=== PATIENT | female | born 1955 | race Two or more races ===

== ENCOUNTER → 2018-04-20 | Outpatient (CLI) | payer MEDICARE ==
[~2018-04-20] MED LIST: ALBU.083IS IH; ALBU3IS INH; ALBU90OI61 INH; ALPR.25 PO; AMIT10 PO; AMIT50 PO; AZIT500 PO; CEPH500 PO; CIPRO500 MG PO; CYCL10 PO; EVAMIST; FLUSAL5005 IH; FLUT.05NI; FLUT220OIA IH; Flomax0.4 MG PO; GABA300 PO; HYDACE10B PO; MONT10T PO; NAPR220 PO; NAPR500 PO; NEBI5 PO; OMEP40CA12 PO; ONDA4ODT MM; PRED20 PO; Pyridium200 MG PO; RANI150 PO; URIBEL CAPSULE1 EACH PO; XOLAIR; Xolair150 MG SQ; [UNRECOGNIZED DRUG - OTHER]
[2018-04-20 22:36] LABS: Candida species (DNA Probe) Negative (NEGATIVE); G. vaginalis (DNA Probe) Negative (NEGATIVE); T. vaginalis (DNA Probe) Negative (NEGATIVE)
== END ==
LOC: LAB EV 16:00 → LAB SHORT 16:00
PROVIDERS: Internal Medicine
DX: N76.0 Acute vaginitis (principal)
CPT/HCPCS: 87480; 87510; 87660

== ENCOUNTER → 2018-05-13 | Outpatient (CLI) | payer MEDICARE | END | disposition home or self-care (01) | LOC: LAB SHORT 16:20 → LAB 16:20 | DX: N89.8 Other specified noninflammatory disorders of vagina (principal) | CPT/HCPCS: 87070; 87077; 87186; 87205 ==

== ENCOUNTER → 2018-05-14 | Outpatient (CLI) | payer MEDICARE | END | disposition home or self-care (01) | LOC: LAB SHORT 15:19 → LAB 15:19 | DX: R30.0 Dysuria (principal) | CPT/HCPCS: 87086 ==

== ENCOUNTER → 2018-05-21 | Outpatient (CLI) | payer MEDICARE | LOC: LAB 16:21 → LAB SHORT 16:21 | DX: R30.0 Dysuria (principal) | CPT/HCPCS: 87086 ==

== ENCOUNTER → 2018-06-22 | Outpatient (CLI) | payer BC, MEDICARE | END | disposition home or self-care (01) | LOC: LAB SHORT 15:37 → LAB 15:37 | DX: R30.0 Dysuria (principal) | CPT/HCPCS: 87086 ==

== ENCOUNTER → 2018-06-30 | Outpatient (CLI) | payer BC, MEDICARE | END | disposition home or self-care (01) | LOC: LAB SHORT 16:23 → LAB 16:23 | DX: N89.8 Other specified noninflammatory disorders of vagina (principal) | CPT/HCPCS: 87070; 87077; 87186; 87205 ==

== ENCOUNTER → 2018-07-27 | Outpatient (CLI) | payer BC, MEDICARE | END | disposition home or self-care (01) | LOC: LAB 16:36 → LAB SHORT 16:36 | DX: N89.8 Other specified noninflammatory disorders of vagina (principal) | CPT/HCPCS: 87070; 87205 ==

== ENCOUNTER → 2018-08-05 | Outpatient (CLI) | payer BC, MEDICARE | END | disposition home or self-care (01) | LOC: LAB SHORT 17:52 → LAB 17:52 | DX: N89.8 Other specified noninflammatory disorders of vagina (principal) | CPT/HCPCS: 87070; 87205 ==

== ENCOUNTER → 2018-11-05 | Outpatient (CLI) | payer BC, MEDICARE ==
[~2018-11-05] MED LIST changes: +ALBU3IS; +ALBU90OI6; +AMIT10; +Advair Hfa 230-12 GM; +Bisoprolol Fumar5 MG; +Bystolic2.5 MG; +Calcium Carbon500 M1; +Clobetasol Emol15 GM; +Estradiol1 MG; +Eye Drops15 ML; +FLONASE ALLERG9.9 ML; +LOSA25; +MONT10T; +Omeprazole20 M1 PO; +Xolair150 MG
== END | disposition home or self-care (01) ==
LOC: LAB EV 06:30
DX: R19.7 Diarrhea, unspecified (principal)
CPT/HCPCS: 87493

== ENCOUNTER → 2018-12-01 | Outpatient (CLI) | payer BC, MEDICARE | END | disposition home or self-care (01) | LOC: LAB 12:52 → LAB SHORT 12:52 | DX: R30.0 Dysuria (principal) | CPT/HCPCS: 87086 ==

== ENCOUNTER → 2018-12-02 | Outpatient (CLI) | payer BC, MEDICARE ==
[2018-12-03 08:16] LABS: G. vaginalis (DNA Probe) Positive (NEGATIVE); T. vaginalis (DNA Probe) Negative (NEGATIVE)
[2018-12-03 08:17] LABS: Candida species (DNA Probe) Negative (NEGATIVE)
== END | disposition home or self-care (01) ==
LOC: LAB 16:44 → LAB SHORT 16:44
PROVIDERS: Obstetrics & Gynecology
DX: N76.0 Acute vaginitis (principal); R19.7 Diarrhea, unspecified; A04.72 Enterocolitis due to Clostridium difficile, not specified as recurrent
CPT/HCPCS: 87070; 87205; 87480; 87510; 87660

== ENCOUNTER → 2018-12-03 | Outpatient (CLI) | payer BC, MEDICARE | END | disposition home or self-care (01) | LOC: LAB SHORT 17:02 → LAB EV 17:02 | DX: N39.0 Urinary tract infection, site not specified (principal) | CPT/HCPCS: 87077; 87086; 87186 ==

== ENCOUNTER → 2019-01-01 | Outpatient (CLI) | payer BC, MEDICARE | END | disposition home or self-care (01) | LOC: LAB SHORT 12:40 → LAB 12:40 | DX: R30.0 Dysuria (principal) | CPT/HCPCS: 87086 ==

== ENCOUNTER → 2019-04-04 | Outpatient (CLI) | payer BC, MEDICARE | END | disposition home or self-care (01) | LOC: LAB 06:55 → LAB SHORT 06:55 | DX: A04.72 Enterocolitis due to Clostridium difficile, not specified as recurrent (principal) | CPT/HCPCS: 87493 ==

== ENCOUNTER → 2019-04-30 | Outpatient (CLI) | payer BC, MEDICARE | END | disposition home or self-care (01) | LOC: LAB EV 08:04 | DX: A04.72 Enterocolitis due to Clostridium difficile, not specified as recurrent (principal) | CPT/HCPCS: 87493 ==

== ENCOUNTER → 2019-05-17 | Outpatient (CLI) | payer BC, MEDICARE ==
[2019-05-18 06:41] LABS: Candida species (DNA Probe) Negative (NEGATIVE); G. vaginalis (DNA Probe) Negative (NEGATIVE); T. vaginalis (DNA Probe) Negative (NEGATIVE)
== END | disposition home or self-care (01) ==
LOC: LAB SHORT 16:17 → LAB 16:17
PROVIDERS: Obstetrics & Gynecology
DX: N89.8 Other specified noninflammatory disorders of vagina (principal); N76.0 Acute vaginitis
CPT/HCPCS: 87480; 87510; 87660

== ENCOUNTER → 2019-06-22 | Outpatient (CLI) | payer BC, MEDICARE | END | disposition home or self-care (01) | LOC: LAB 08:03 → LAB SHORT 08:03 → LAB FUT 05-18 15:45 → EDSTATUS 05-18 15:45 | DX: R19.7 Diarrhea, unspecified (principal) | CPT/HCPCS: 87493 ==

== ENCOUNTER → 2019-06-30 | Outpatient (CLI) | payer BC, MEDICARE | END | disposition home or self-care (01) | LOC: LAB 16:09 → LAB SHORT 16:09 | DX: N89.8 Other specified noninflammatory disorders of vagina (principal) | CPT/HCPCS: 87070; 87077; 87186; 87205 ==

== ENCOUNTER → 2019-07-02 | Outpatient (CLI) | payer BC, MEDICARE | LOC: LAB SHORT 07:23 → PLD 07:23 | DX: L30.9 Dermatitis, unspecified (principal); L81.0 Postinflammatory hyperpigmentation; R21 Rash and other nonspecific skin eruption | CPT/HCPCS: 88312 ==

== ENCOUNTER → 2019-09-06 | Outpatient (CLI) | payer BC, MEDICARE | END | disposition home or self-care (01) | LOC: LAB 09:36 → LAB SHORT 09:36 | DX: N89.8 Other specified noninflammatory disorders of vagina (principal) | CPT/HCPCS: 87070; 87205 ==

== ENCOUNTER → 2019-11-26 | Outpatient (CLI) | payer BC, MEDICARE | END | disposition home or self-care (01) | LOC: LAB SHORT 08:29 → OLS 08:29 → LAB FUT 08-11 16:50 | PROVIDERS: Internal Medicine Gastroenterology | DX: R19.7 Diarrhea, unspecified (principal); Z86.19 Personal history of other infectious and parasitic diseases | CPT/HCPCS: 87324; 87493 ==

== ENCOUNTER → 2020-01-28 | Outpatient (CLI) | payer BC, MEDICARE | END | disposition home or self-care (01) | LOC: LAB SHORT 07:51 → OLS 07:51 → LAB FUT 01-20 18:15 | DX: A04.72 Enterocolitis due to Clostridium difficile, not specified as recurrent (principal) | CPT/HCPCS: 87493 ==

== ENCOUNTER → 2020-02-25 | Outpatient (CLI) | payer BC, MEDICARE | END | disposition home or self-care (01) | LOC: LAB SHORT 08:34 → LAB 08:34 → LAB FUT 02-10 13:30 | DX: R19.7 Diarrhea, unspecified (principal); Z86.19 Personal history of other infectious and parasitic diseases | CPT/HCPCS: 87493 ==

== ENCOUNTER → 2020-04-24 | Outpatient (CLI) | payer BC, MEDICARE | END | disposition home or self-care (01) | LOC: LAB SHORT 15:50 → LAB 15:50 | DX: N89.8 Other specified noninflammatory disorders of vagina (principal) | CPT/HCPCS: 87070; 87205 ==

== ENCOUNTER → 2020-11-04 | Outpatient (CLI) | payer BC, MEDICARE, OTHER ==
[2020-11-04 12:45] LABS: C DIFFICILE DNA Positive (Negative)
== END | disposition home or self-care (01) ==
LOC: LAB SHORT 10:48
PROVIDERS: Internal Medicine Gastroenterology
DX: R19.7 Diarrhea, unspecified (principal); B96.89 Other specified bacterial agents as the cause of diseases classified elsewhere
CPT/HCPCS: 87324; 87493

== ENCOUNTER → 2021-12-20 | Outpatient (CLI) | payer BC, MEDICARE ==
[2021-12-20 16:17] LABS: BASOPHILS ABSOLUTE AUTO 0.04 K/mm3 (0.00-0.23); BASOPHILS PERCENT AUTO 1 % (0-2); EOSINOPHILS ABSOLUTE AUTO 0.94 K/mm3 (0.00-0.68); EOSINOPHILS PERCENT AUTO 13 % (0-6); Hematocrit 41.4 % (33.0-51.0); Hemoglobin 13.5 g/dL (11.5-16.0); IMMATURE GRAN ABSOLUTE AUTO 0.01 K/mm3 (0.00-0.10); IMMATURE GRAN PERCENT AUTO 0 % (0-1); LYMPHOCYTES ABSOLUTE AUTO 2.41 K/mm3 (0.84-5.20); LYMPHOCYTES PERCENT AUTO 33 % (21-46); MONOCYTES ABSOLUTE AUTO 0.44 K/mm3 (0.16-1.47); MONOCYTES PERCENT AUTO 6 % (4-13); Mean Corpuscular HGB 30.5 pg (26.0-34.0); Mean Corpuscular HGB Conc 32.6 g/dL (31.5-36.5); Mean Corpuscular Volume 94 fL (80-100); Mean Platelet Volume 10.1 fL (9.1-12.4); NEUTROPHILS ABSOLUTE AUTO 3.54 K/mm3 (1.96-9.15); NEUTROPHILS PERCENT AUTO 48 % (41-73); Platelet Count 312 K/mm3 (150-400); RDW Coefficient Variation 12.4 % (11.7-14.2); Red Blood Cell Count 4.42 M/mm3 (3.80-5.20); White Blood Cell Count 7.38 K/mm3 (4.00-11.30)
[2021-12-20 16:21] LABS: Anion Gap 14 mmol/L (6-16); Blood Urea Nitrogen 9 mg/dL (8-24); Bun/Creatinine Ratio 12.2 (12.0-20.0); CO2, Blood 28 mmol/L (21-32); Calcium, Blood 9.7 mg/dL (8.5-10.1); Chloride, Blood 104 mmol/L (98-108); Creatinine, Blood 0.74 mg/dL (0.40-1.00); Glomerular Filtration Rate >60 (60-); Glucose, Blood 79 mg/dL (70-99); Potassium, Blood 4.1 mmol/L (3.5-5.5); Sodium, Blood 146 mmol/L (136-145); Thyroid Stimulating Hormone 0.471 uIU/mL (0.360-4.800)
== END ==
LOC: LAB SHORT 15:52 → LAB 15:52
PROVIDERS: Physician Assistant Surgical
DX: R53.83 Other fatigue (principal)
CPT/HCPCS: 80048; 84443; 85025

== ENCOUNTER → 2022-01-17 | Outpatient (CLI) | payer BC, MEDICARE | END | disposition home or self-care (01) | LOC: LAB 16:04 → LAB SHORT 16:04 | DX: N90.89 Other specified noninflammatory disorders of vulva and perineum (principal) | CPT/HCPCS: 87070; 87077; 87186; 87205 ==

== ENCOUNTER → 2022-10-17 | Outpatient (CLI) | payer BC, MEDICARE | END | disposition home or self-care (01) | LOC: LAB 17:03 → LAB SHORT 17:03 | DX: N30.00 Acute cystitis without hematuria (principal) | CPT/HCPCS: 87086 ==

== ENCOUNTER → 2022-10-22 | Outpatient (CLI) | payer BC, MEDICARE | END | disposition home or self-care (01) | LOC: LAB 09:45 → LAB SHORT 09:45 | DX: N89.8 Other specified noninflammatory disorders of vagina (principal); R10.2 Pelvic and perineal pain | CPT/HCPCS: 87070; 87086; 87205 ==

== ENCOUNTER → 2023-02-18 | Outpatient (CLI) | payer BC, MEDICARE ==
[2023-02-18 13:24] LABS: BASOPHILS ABSOLUTE AUTO 0.04 K/mm3 (0.00-0.23); BASOPHILS PERCENT AUTO 1 % (0-2); EOSINOPHILS ABSOLUTE AUTO 0.94 K/mm3 (0.00-0.68); EOSINOPHILS PERCENT AUTO 12 % (0-6); Hemoglobin 12.9 g/dL (11.5-16.0); IMMATURE GRAN ABSOLUTE AUTO 0.02 K/mm3 (0.00-0.10); IMMATURE GRAN PERCENT AUTO 0 % (0-1); LYMPHOCYTES ABSOLUTE AUTO 2.49 K/mm3 (0.84-5.20); LYMPHOCYTES PERCENT AUTO 32 % (21-46); MONOCYTES PERCENT AUTO 8 % (4-13); Mean Corpuscular HGB 29.5 pg (26.0-34.0); Mean Corpuscular HGB Conc 32.3 g/dL (31.5-36.5); Mean Corpuscular Volume 91 fL (80-100); Mean Platelet Volume 9.9 fL (9.1-12.4); NEUTROPHILS ABSOLUTE AUTO 3.73 K/mm3 (1.96-9.15); NEUTROPHILS PERCENT AUTO 48 % (41-73); Platelet Count 321 K/mm3 (150-400); RDW Coefficient Variation 13.4 % (11.7-14.2); RDW Standard Deviation 44.3 fL (35.1-46.3); Red Blood Cell Count 4.38 M/mm3 (3.80-5.20); White Blood Cell Count 7.82 K/mm3 (4.00-11.30)
[2023-02-18 13:30] LABS: Bun/Creatinine Ratio 16.7 (12.0-20.0); Calcium, Blood 9.7 mg/dL (8.5-10.1); Creatinine, Blood 0.78 mg/dL (0.40-1.00); Potassium, Blood 3.7 mmol/L (3.5-5.5)
== END | disposition home or self-care (01) ==
LOC: LAB 13:17 → LAB SHORT 13:17
PROVIDERS: Family Medicine
DX: R07.9 Chest pain, unspecified (principal)
CPT/HCPCS: 80048; 84484; 85025

== ENCOUNTER → 2023-08-19 | Outpatient (CLI) | payer BC, MEDICARE ==
[2023-08-19 15:15] LABS: BASOPHILS ABSOLUTE AUTO 0.03 K/mm3 (0.00-0.23); BASOPHILS PERCENT AUTO 1 % (0-2); EOSINOPHILS ABSOLUTE AUTO 0.62 K/mm3 (0.00-0.68); EOSINOPHILS PERCENT AUTO 10 % (0-6); Hematocrit 41.3 % (33.0-51.0); Hemoglobin 12.9 g/dL (11.5-16.0); IMMATURE GRAN ABSOLUTE AUTO 0.01 K/mm3 (0.00-0.10); IMMATURE GRAN PERCENT AUTO 0 % (0-1); LYMPHOCYTES ABSOLUTE AUTO 2.09 K/mm3 (0.84-5.20); LYMPHOCYTES PERCENT AUTO 34 % (21-46); MONOCYTES ABSOLUTE AUTO 0.56 K/mm3 (0.16-1.47); MONOCYTES PERCENT AUTO 9 % (4-13); Mean Corpuscular HGB 29.5 pg (26.0-34.0); Mean Corpuscular HGB Conc 31.2 g/dL (31.5-36.5); Mean Corpuscular Volume 94 fL (80-100); Mean Platelet Volume 10.3 fL (9.1-12.4); NEUTROPHILS ABSOLUTE AUTO 2.84 K/mm3 (1.96-9.15); NEUTROPHILS PERCENT AUTO 46 % (41-73); Platelet Count 304 K/mm3 (150-400); RDW Coefficient Variation 12.5 % (11.7-14.2); RDW Standard Deviation 43.7 fL (35.1-46.3); Red Blood Cell Count 4.38 M/mm3 (3.80-5.20); White Blood Cell Count 6.15 K/mm3 (4.00-11.30)
[2023-08-19 16:41] LABS: Albumin/Globulin Ratio 1.1 (0.8-1.8); Bilirubin, Total 0.3 mg/dL (0.1-1.0); Bun/Creatinine Ratio 17.5 (12.0-20.0); Calcium, Blood 9.7 mg/dL (8.5-10.1); Creatinine, Blood 0.91 mg/dL (0.40-1.00); Globulin, Blood 3.8 g/dL (2.2-4.0); Potassium, Blood 4.1 mmol/L (3.5-5.5); Thyroid Stimulating Hormone 0.583 uIU/mL (0.360-4.800); Total Protein, Blood 7.8 g/dL (6.4-8.2)
[2023-08-20 20:09] LABS: HEMOGLOBIN A1C 5.5 % (4.8-5.6)
[2023-08-22 20:07] LABS: ANTI-CENTROMERE B ANTIBODIES <0.2 AI (0.0-0.9); ANTI-DNA (DS) AB QN 2 IU/mL (0-9); ANTI-JO-1 <0.2 AI (0.0-0.9); ANTICHROMATIN ANTIBODIES <0.2 AI (0.0-0.9); ANTISCLERODERMA-70 ANTIBODIES <0.2 AI (0.0-0.9); RNP ANTIBODIES <0.2 AI (0.0-0.9); SJOGREN'S ANTI-SS-A 0.2 AI (0.0-0.9); SJOGREN'S ANTI-SS-B <0.2 AI (0.0-0.9); SMITH ANTIBODIES <0.2 AI (0.0-0.9)
== END | disposition home or self-care (01) ==
LOC: LAB SHORT 13:36 → LAB 13:36
PROVIDERS: Internal Medicine
DX: Z13.1 Encounter for screening for diabetes mellitus (principal); K13.70 Unspecified lesions of oral mucosa; Z79.899 Other long term (current) drug therapy
CPT/HCPCS: 80053; 83036; 84443; 85025; 85651; 86038; 86225; 86235

== ENCOUNTER → 2023-12-26 | Outpatient (CLI) | payer BC, MEDICARE ==
[2023-12-26 14:33] LABS: Body Fluid Crystals NEG (NEGATIVE)
[2023-12-26 15:18] LABS: RBC Count, Synovial Fluid 668 /mm3 (0-0)
[2023-12-26 15:19] LABS: Appearance, Synovial Fluid Hazy (Clear); Color, Synovial Fluid Pale Yellow (None-P Yel); WBC Count, Synovial Fluid 112 /mm3 (0-180)
[2023-12-26 15:43] LABS: Lymphs, Synovial Fluid 17 % (0-15); Monocytes/Macrophages, Synovia 61 % (0-65); Neutrophils, Synovial Fluid 22 % (0-24)
== END ==
LOC: LAB SHORT 09:15 → LAB 09:15
PROVIDERS: Internal Medicine
DX: M25.561 Pain in right knee (principal)
CPT/HCPCS: 89051; 89060

== ENCOUNTER → 2024-03-11 | Outpatient (CLI) | payer BC, MEDICARE ==
[2024-03-11 15:27] LABS: Hematocrit 35.9 % (33.0-51.0); Hemoglobin 11.1 g/dL (11.5-16.0); Mean Corpuscular HGB 29.1 pg (26.0-34.0); Mean Corpuscular HGB Conc 30.9 g/dL (31.5-36.5); Mean Corpuscular Volume 94 fL (80-100); Mean Platelet Volume 10.8 fL (9.1-12.4); Platelet Count 302 K/mm3 (150-400); RDW Coefficient Variation 13.4 % (11.7-14.2); RDW Standard Deviation 45.8 fL (35.1-46.3); Red Blood Cell Count 3.82 M/mm3 (3.80-5.20); White Blood Cell Count 6.52 K/mm3 (4.00-11.30)
[2024-03-11 16:03] LABS: Alanine Aminotransfer (ALT/SGP 30 U/L (12-78); Albumin, Blood 3.8 g/dL (3.4-5.0); Albumin/Globulin Ratio 1.3 (0.8-1.8); Alk Phos 93 U/L (50-136); Anion Gap 8 mmol/L (3-11); Aspartate Aminotrans (AST/SGOT 31 U/L (12-37); Bilirubin, Total 0.3 mg/dL (0.1-1.0); Blood Urea Nitrogen 12 mg/dL (8-24); Bun/Creatinine Ratio 14.8 (12.0-20.0); CHOL/HDL RATIO 2.3; CO2, Blood 28 mmol/L (21-32); Calcium, Blood 9.7 mg/dL (8.5-10.1); Chloride, Blood 111 mmol/L (98-108); Cholesterol 124 mg/dL (50-200); Creatinine, Blood 0.81 mg/dL (0.40-1.00); Glomerular Filtration Rate 78 (60-); Glucose, Blood 94 mg/dL (70-99); HDL Cholesterol 54 mg/dL (>39); LDL/HDL RATIO 0.7; Low Density Lipoprotein Chol 39 mg/dL (0-110); Potassium, Blood 5.1 mmol/L (3.5-5.5); Sodium, Blood 142 mmol/L (136-145); Total Protein, Blood 6.8 g/dL (6.4-8.2); Triglycerides 157 mg/dL (30-160); Very Low Density Lipoprot Chol 31 mg/dL (6-32)
== END | disposition home or self-care (01) ==
LOC: LAB SHORT 14:18
PROVIDERS: Internal Medicine
DX: I67.89 Other cerebrovascular disease (principal)
CPT/HCPCS: 80053; 80061; 85027

== ENCOUNTER → 2024-06-08 | Outpatient (CLI) | payer BC, MEDICARE ==
[2024-06-08 15:28] LABS: BASOPHILS ABSOLUTE AUTO 0.04 K/mm3 (0.00-0.23); BASOPHILS PERCENT AUTO 1 % (0-2); EOSINOPHILS ABSOLUTE AUTO 0.65 K/mm3 (0.00-0.68); EOSINOPHILS PERCENT AUTO 9 % (0-6); Hematocrit 32.9 % (33.0-51.0); Hemoglobin 10.2 g/dL (11.5-16.0); IMMATURE GRAN ABSOLUTE AUTO 0.02 K/mm3 (0.00-0.10); IMMATURE GRAN PERCENT AUTO 0 % (0-1); LYMPHOCYTES ABSOLUTE AUTO 1.85 K/mm3 (0.84-5.20); LYMPHOCYTES PERCENT AUTO 25 % (21-46); MONOCYTES ABSOLUTE AUTO 0.61 K/mm3 (0.16-1.47); MONOCYTES PERCENT AUTO 8 % (4-13); Mean Corpuscular HGB 28.3 pg (26.0-34.0); Mean Corpuscular Volume 91 fL (80-100); Mean Platelet Volume 10.5 fL (9.1-12.4); NEUTROPHILS PERCENT AUTO 56 % (41-73); Platelet Count 299 K/mm3 (150-400); RDW Coefficient Variation 13.8 % (11.7-14.2); RDW Standard Deviation 46.1 fL (35.1-46.3); White Blood Cell Count 7.27 K/mm3 (4.00-11.30)
[2024-06-08 15:47] LABS: Iron Serum 41 ug/dL (50-170); Magnesium, Blood 2.3 mg/dL (1.6-2.4)
[2024-06-08 15:56] LABS: Albumin, Blood 3.9 g/dL (3.4-5.0); Anion Gap 10 mmol/L (3-11); Blood Urea Nitrogen 18 mg/dL (8-24); Bun/Creatinine Ratio 16.4 (12.0-20.0); CO2, Blood 28 mmol/L (21-32); Calcium, Blood 9.5 mg/dL (8.5-10.1); Chloride, Blood 107 mmol/L (98-108); Ferritin, Serum 9 ng/mL (8-252); Glomerular Filtration Rate 54 (60-); Glucose, Blood 96 mg/dL (70-99); Percent Saturation 8.2 % (15.0-50.0); Phosphorus, Blood 3.4 mg/dL (2.5-4.9); Potassium, Blood 4.1 mmol/L (3.5-5.5); Sodium, Blood 141 mmol/L (136-145); Thyroid Stimulating Hormone 0.813 uIU/mL (0.360-4.800); Total Iron Binding Capacity 503 ug/dL (250-450)
== END | disposition home or self-care (01) ==
LOC: LAB SHORT 08:30 → LAB 08:30
PROVIDERS: Internal Medicine
DX: D64.9 Anemia, unspecified (principal); R53.83 Other fatigue
CPT/HCPCS: 80069; 82728; 83540; 83550; 83735; 84443; 85025

== ENCOUNTER → 2025-02-01 | Outpatient (CLI) | payer BC, MEDICARE, OTHER ==
[2025-02-01 14:34] LABS: BASOPHILS ABSOLUTE AUTO 0.06 K/mm3 (0.00-0.23); BASOPHILS PERCENT AUTO 1 % (0-2); EOSINOPHILS ABSOLUTE AUTO 1.01 K/mm3 (0.00-0.68); EOSINOPHILS PERCENT AUTO 11 % (0-6); Hematocrit 33.1 % (33.0-51.0); Hemoglobin 10.1 g/dL (11.5-16.0); IMMATURE GRAN ABSOLUTE AUTO 0.03 K/mm3 (0.00-0.10); IMMATURE GRAN PERCENT AUTO 0 % (0-1); LYMPHOCYTES ABSOLUTE AUTO 1.87 K/mm3 (0.84-5.20); LYMPHOCYTES PERCENT AUTO 21 % (21-46); MONOCYTES ABSOLUTE AUTO 0.72 K/mm3 (0.16-1.47); MONOCYTES PERCENT AUTO 8 % (4-13); Mean Corpuscular HGB 26.8 pg (26.0-34.0); Mean Corpuscular HGB Conc 30.5 g/dL (31.5-36.5); Mean Corpuscular Volume 88 fL (80-100); Mean Platelet Volume 10.7 fL (9.1-12.4); NEUTROPHILS ABSOLUTE AUTO 5.19 K/mm3 (1.96-9.15); NEUTROPHILS PERCENT AUTO 58 % (41-73); Platelet Count 299 K/mm3 (150-400); RDW Coefficient Variation 14.2 % (11.7-14.2); Red Blood Cell Count 3.77 M/mm3 (3.80-5.20); White Blood Cell Count 8.88 K/mm3 (4.00-11.30)
[2025-02-01 14:52] LABS: Albumin, Blood 3.9 g/dL (3.4-5.0); Albumin/Globulin Ratio 1.1 (0.8-1.8); Bilirubin, Total 0.4 mg/dL (0.1-1.0); Bun/Creatinine Ratio 15.7 (12.0-20.0); Calcium, Blood 9.5 mg/dL (8.5-10.1); Creatinine, Blood 1.02 mg/dL (0.40-1.00); Globulin, Blood 3.6 g/dL (2.2-4.0); Percent Saturation 7.5 % (15.0-50.0); Potassium, Blood 4.3 mmol/L (3.5-5.5); Total Protein, Blood 7.5 g/dL (6.4-8.2)
== END | disposition home or self-care (01) ==
LOC: LAB SHORT 08:15 → LAB 08:15
PROVIDERS: Internal Medicine
DX: D64.9 Anemia, unspecified (principal); J06.9 Acute upper respiratory infection, unspecified
CPT/HCPCS: 80053; 82728; 83540; 83550; 85025

== ENCOUNTER 2025-02-06 08:15 | Day surgery (SDC) | payer BC, MEDICARE ==
[~2025-02-06 08:15] MED LIST changes: +Sod Ferric Gluc Complx/Sucrose 125 MG in NS 100 ML IV SCH
[2025-02-06 09:01] VITALS: BP 146/80
[2025-02-06] MEDS ORDERED: SERT100 PO (09:39)
== END 2025-02-06 10:25 | disposition home or self-care (01) ==
LOC: ATC 08:15
DX: D50.9 Iron deficiency anemia, unspecified (principal); Z88.0 Allergy status to penicillin; Z88.2 Allergy status to sulfonamides; Z79.899 Other long term (current) drug therapy
CPT/HCPCS: 96365; J2916

== ENCOUNTER 2025-02-10 02:58 | Day surgery (SDC) | payer BC, MEDICARE ==
[~2025-02-10 02:58] MED LIST changes: +SERT100 PO
[2025-02-10 16:08] VITALS: BP 128/70
== END 2025-02-10 16:57 | disposition home or self-care (01) ==
LOC: ATC 02:58
DX: D50.9 Iron deficiency anemia, unspecified (principal); J45.40 Moderate persistent asthma, uncomplicated; Z79.899 Other long term (current) drug therapy
CPT/HCPCS: 96365; J2916

== ENCOUNTER 2025-02-16 01:34 | Day surgery (SDC) | payer BC, MEDICARE ==
[2025-02-16 16:07] VITALS: BP 122/70
== END 2025-02-16 17:01 | disposition home or self-care (01) ==
LOC: ATC 01:34
DX: D50.9 Iron deficiency anemia, unspecified (principal); J45.41 Moderate persistent asthma with (acute) exacerbation; Z88.0 Allergy status to penicillin; Z88.2 Allergy status to sulfonamides; Z79.899 Other long term (current) drug therapy
CPT/HCPCS: 96365; J2916

== ENCOUNTER 2025-02-27 01:24 | Day surgery (SDC) | payer BC, MEDICARE ==
[~2025-02-27 01:24] MED LIST changes: -Sod Ferric Gluc Complx/Sucrose 125 MG in NS 100 ML IV SCH
[2025-02-27] MEDS ORDERED: Sod Ferric Gluc Complx/Sucrose 125 MG in NS 100 ML IV SCH (06:00)
[2025-02-27 10:08] VITALS: BP 148/86
== END 2025-02-27 11:05 | disposition home or self-care (01) ==
LOC: ATC 01:24
DX: D50.9 Iron deficiency anemia, unspecified (principal); Z88.0 Allergy status to penicillin; Z88.2 Allergy status to sulfonamides; Z79.899 Other long term (current) drug therapy
CPT/HCPCS: 96365; J2916

== ENCOUNTER 2025-03-06 00:33 | Day surgery (SDC) | payer BC, MEDICARE ==
[2025-03-06] MEDS ORDERED: Sod Ferric Gluc Complx/Sucrose 125 MG in NS 100 ML IV SCH (01:00)
[2025-03-06 08:37] VITALS: BP 149/91
== END 2025-03-06 09:40 | disposition home or self-care (01) ==
LOC: ATC 00:33
DX: D50.9 Iron deficiency anemia, unspecified (principal); J45.40 Moderate persistent asthma, uncomplicated; Z88.0 Allergy status to penicillin; Z88.2 Allergy status to sulfonamides; Z79.899 Other long term (current) drug therapy
CPT/HCPCS: 96365; J2916

== ENCOUNTER → 2025-03-17 | Outpatient (CLI) | payer BC, MEDICARE ==
[2025-03-17 15:39] LABS: BASOPHILS ABSOLUTE AUTO 0.03 K/mm3 (0.00-0.23); BASOPHILS PERCENT AUTO 0 % (0-2); EOSINOPHILS PERCENT AUTO 11 % (0-6); Hematocrit 38.3 % (33.0-51.0); IMMATURE GRAN ABSOLUTE AUTO 0.03 K/mm3 (0.00-0.10); IMMATURE GRAN PERCENT AUTO 0 % (0-1); LYMPHOCYTES ABSOLUTE AUTO 1.67 K/mm3 (0.84-5.20); LYMPHOCYTES PERCENT AUTO 22 % (21-46); MONOCYTES ABSOLUTE AUTO 0.61 K/mm3 (0.16-1.47); MONOCYTES PERCENT AUTO 8 % (4-13); Mean Corpuscular HGB 28.6 pg (26.0-34.0); Mean Corpuscular HGB Conc 31.3 g/dL (31.5-36.5); Mean Corpuscular Volume 91 fL (80-100); Mean Platelet Volume 10.1 fL (9.1-12.4); NEUTROPHILS ABSOLUTE AUTO 4.36 K/mm3 (1.96-9.15); NEUTROPHILS PERCENT AUTO 58 % (41-73); Platelet Count 217 K/mm3 (150-400); RDW Coefficient Variation 18.2 % (11.7-14.2)
[2025-03-17 16:08] LABS: Alanine Aminotransfer (ALT/SGP 29 U/L (12-78); Albumin, Blood 3.8 g/dL (3.4-5.0); Albumin/Globulin Ratio 1.4 (0.8-1.8); Alk Phos 87 U/L (50-136); Anion Gap 7 mmol/L (3-11); Aspartate Aminotrans (AST/SGOT 15 U/L (12-37); Bilirubin, Total 0.4 mg/dL (0.1-1.0); Blood Urea Nitrogen 11 mg/dL (8-24); Bun/Creatinine Ratio 14.2 (12.0-20.0); CHOL/HDL RATIO 3.1; CO2, Blood 31 mmol/L (21-32); Calcium, Blood 9.5 mg/dL (8.5-10.1); Chloride, Blood 107 mmol/L (98-108); Cholesterol 147 mg/dL (50-200); Creatinine, Blood 0.78 mg/dL (0.40-1.00); Ferritin, Serum 266 ng/mL (8-252); Globulin, Blood 2.8 g/dL (2.2-4.0); Glomerular Filtration Rate 81 (60-); Glucose, Blood 83 mg/dL (70-99); HDL Cholesterol 48 mg/dL (>39); Iron Serum 67 ug/dL (50-170); LDL/HDL RATIO 1.2; Low Density Lipoprotein Chol 56 mg/dL (0-110); Percent Saturation 18.7 % (15.0-50.0); Potassium, Blood 4.2 mmol/L (3.5-5.5); Sodium, Blood 141 mmol/L (136-145); Total Iron Binding Capacity 359 ug/dL (250-450); Total Protein, Blood 6.6 g/dL (6.4-8.2); Triglycerides 215 mg/dL (30-160); Very Low Density Lipoprot Chol 43 mg/dL (6-32)
[2025-03-17 16:10] LABS: Thyroid Stimulating Hormone 0.795 uIU/mL (0.360-4.800)
== END ==
LOC: LAB SHORT 13:51 → LAB 13:51
PROVIDERS: Internal Medicine
DX: I67.89 Other cerebrovascular disease (principal); D64.9 Anemia, unspecified; R53.83 Other fatigue; Z79.899 Other long term (current) drug therapy
CPT/HCPCS: 80053; 80061; 82607; 82728; 82746; 83540; 83550; 84443; 85025